=== PATIENT | male | born 1955 | race Hispanic/Latino ===

== ENCOUNTER 2016-07-25 06:53 | Inpatient (IN) | payer BC ==
[2016-07-25 07:00] VITALS: BMI 27.1
[2016-07-25] MEDS ORDERED: Metoprolol 1 mg/ml Inj IVP ONE ×2 (07:08→08:10)
[2016-07-25] MEDS ORDERED: Lidocaine 2% Inj (20ml) ONE (07:09)
[2016-07-25] MEDS ORDERED: Eptifibatide 0.75 mg/ml 150 MG/200 ML BOTTLE IV ONE (07:09)
[2016-07-25] MEDS ORDERED: Eptifibatide 20 mg/10mL Inj IVP ONE ×2 (07:09→07:25)
[2016-07-25] MEDS ORDERED: Phenylephrine 10 mg/ml Inj ONE (07:10)
[2016-07-25] MEDS ORDERED: Iohexol 350mgl/ml 50 ML ONE (07:10)
[2016-07-25] MEDS ORDERED: Midazolam 2 MG/2 ML VIAL ONE (07:10)
[2016-07-25] MEDS ORDERED: Iodixanol 320 MG/ML 200 ML BOTTLE IV ONE (07:10)
[2016-07-25] MEDS ORDERED: Nitroglycerin 50mg in D5W 50 MG/250 ML BOTTLE IV ONE (07:11)
[2016-07-25 07:18] LABS: ADD MANUAL DIFF? NO
[2016-07-25 07:24] LABS: BASO # 0.02 K/mm3 (0.0-2.0); BASO % 0.2 % (0.0-3.0); EOS # 0.1 (0.0-0.7); GRAN # 8.28 (1.4-6.5); GRAN % 72.7 % (50.0-68.0); HEMATOCRIT 43.8 % (42.0-52.0); LYMPH # 1.9 (1.2-3.4); LYMPH % 16.3 % (22.0-35.0); MEAN CELL VOLUME 88.7 fL (80.0-105.0); MEAN CORPUSCULAR HEMOGLOBIN 32.2 pg (25.0-35.0); MEAN CORPUSCULAR HGB CONC 36.3 g/dl (31.0-37.0); MEAN PLATELET VOLUME 10.4 fl (7.0-11.0); MONO # 1.1 (0.1-0.6); MONO % 9.8 % (1.0-6.0); PLATELET COUNT 241 10^3/uL (120.0-450.0); RED CELL DISTRIBUTION WIDTH 12.4 % (11.5-14.5); WHITE BLOOD COUNT 11.4 10^3/ul (4.5-11.0)
[2016-07-25 07:33] LABS: PARTIAL THROMBOPLASTIN TIME 27.3 Seconds (23.7-30.8)
[2016-07-25 07:36] LABS: ALB/GLOB RATIO 1.3 (1.1-1.8); ALKALINE PHOSPHATASE 128 U/L (38-133); ALT/SGPT 44 U/L (7-56); AST/SGOT 51 U/L (15-59); BILIRUBIN,TOTAL 1.9 mg/dL (0.2-1.3); BLOOD UREA NITROGEN 23 mg/dL (7-21); CALCIUM 8.9 mg/dL (8.4-10.5); CARBON DIOXIDE 23 mmol/L (21-33); CHLORIDE 95 mmol/L (95-110); CHOLESTEROL 229 mg/dL (130-200); GFR AFRICAN-AMERICAN > 60; POTASSIUM 4.2 mmol/L (3.6-5.0); SODIUM 131 mmol/L (132-148); TOTAL PROTEIN 7.5 g/dL (5.8-8.3)
--- NOTE | 2016-07-25 07:37 | ED PDOC ---
Arrival/HPI - General Chief Complaint: Chest Pain Time Seen by Provider: 07/25/16 07:00 Historian: Patient - History of Present Illness Narrative History of Present Illness (Text): 07/25/16 07:21 61 year old male presents to the emergency department with intermittent chest pain on and off for the past 4 days, becoming constant early this morning, accompanied with generalized weakness. No back pain. No relieving or exacerbating factors. Patient states he is borderline diabetic and reports history of smoking. Time/Duration: < week Symptom Onset: Gradual Modifying Factors (Text): None Associated Symptoms (Text): Generalized weakness Past Medical History - Provider Review Nursing Documentation Reviewed: Yes - Cardiac Hx Cardiac Disorders: No - Pulmonary Hx Respiratory Disorders: No - Neurological Hx Neurological Disorder: No - HEENT Hx HEENT Disorder: No - Renal Hx Renal Disorder: No - Endocrine/Metabolic Other/Comment: Borderline Diabetic - Hematological/Oncological Hx Blood Disorders: No - Integumentary Hx Dermatological Disorder: No - Musculoskeletal/Rheumatological Hx Musculoskeletal Disorders: No - Gastrointestinal Hx Gastrointestinal Disorders: No - Genitourinary/Gynecological Hx Genitourinary Disorders: No - Psychiatric Hx Psychophysiologic Disorder: No Hx Substance Use: No - Anesthesia Hx Anesthesia: No Family/Social History - Physician Review Nursing Documentation Reviewed: Yes Family/Social History: Unknown Family HX Smoking Status: Heavy Smoker > 10 Cigarettes Daily Hx Alcohol Use: No Hx Substance Use: No Allergies/Home Meds Allergies/Adverse Reactions: Allergies No Known Allergies Allergy (Verified 07/25/16 07:08) Home Medications: Home Meds Medication Instructions Recorded Confirmed No Known Home Med 07/25/16 07/25/16 Review of Systems - Physician Review All systems were reviewed & negative as marked: Yes Physical Exam - Physical Exam Narrative Physical Exam (Text): - Review of Systems Constitutional: Generalized weakness absent: Weight Change, Fevers Eyes: Normal ENT: Normal Respiratory: Normal absent: SOB, Cough, Sputum Cardiovascular: Chest pain absent: Palpitations, Syncope Gastrointestinal: Normal absent: Abdominal pain, Diarrhea, Nausea, Vomiting Genitourinary: Normal. absent: Dysuria, Frequency, Hematuria Musculoskeletal: Normal. absent: Arthralgias, Back Pain, Neck Pain Skin: Normal Neurological: Normal absent: Focal Weakness Endocrine: Normal Hemo/Lymphatic: Normal Psychiatric: Normal - Physical exam Patient appears age appropriate, speaking full sentences without difficulty - Systems Exam Head: Present: Atraumatic, Normocephalic Pupils: Present: PERRL Extraocular Muscles: Present: EOMI Conjunctiva: Present: Normal Mouth: Present: Moist Mucous Membranes Neck: Present: Normal Range of Motion. No: MIDLINE TENDERNESS, Paraspinal Tenderness Respiratory/Chest: Present: Clear to Auscultation, Good Air Exchange. No: Respiratory Distress, Accessory Muscle Use, Tachypneic Cardiovascular: Present: Tachycardic, Irregular Rhythm, Peripheral Pulses Present. No: Murmurs Abdomen: Present: Normal Bowel Sounds, No: Tenderness, Peritoneal Signs, Rebound, Guarding, Distention Back: Present: Normal Inspection. No: Midline Tenderness, Paraspinal Tenderness Upper Extremity: Present: Normal Inspection. No: Cyanosis, Edema Lower Extremity: Present: Normal Inspection. No: Edema Neurological: Present: GCS=15, Speech Normal, cranial nerves II through XII fully intact with no cerebellar abnormality, neuro-sensory fully intact. No focal neurological deficits. Skin: Present: Warm, Dry, Normal Color. No: Rashes Lymphatic: Present: OX3, NI, NC Psychiatric: Present: Alert, Oriented x 3, Normal Insight, Normal Concentration Vital Signs Reviewed: Yes Vital Signs Temp Pulse Resp BP Pulse Ox 07/25/16 07:00 98.2 F 84 16 124/99 H 94 L 07/25/16 06:58 98.2 F 84 16 124/99 H 94 L Temperature: Afebrile Blood Pressure: Normal Pulse: Regular Respiratory Rate: Normal Appearance: Positive for: Well-Appearing, Non-Toxic Mental Status: Positive for: Alert and Oriented X 3 Medical Decision Making ED Course and Treatment: Impression: 61 year old male presents to the emergency department with intermittent chest pain on and off for the past 4 days, becoming constant early this morning, accompanied with generalized weakness. On physical exam, patient is tachycardic and has irregular rhythm. Differential Diagnosis include but are not limited to: STEMI, atrial fibrillation Plan: -- Chest X-ray -- Labs -- Cardiology consult Progress Notes: Per patient's family's request, Dr. Craft was called and not the interventionalist business solutions director. Patient's EKG shows atrial fibrillation at 160 BPM, ST segment elevations in inferior and lateral leads; Interpreted by me. Chest x-ray read by me shows no pneumothorax, no pneumonia, no cardiomegaly, no infiltrates. Code Heart activated. Dr. Craft saw patient in ER and took to laborer [employer]. Patient to be admitted to his service. Verbal order given for Aspirin, Plavix, Heparin, and Integrilin. pt aware of plan and diagnosis - Lab Interpretations Lab Results: 07/25/16 07:00 07/25/16 07:00 Lab Results 07/25/16 07:00: Sodium 131 L, Potassium 4.2, Chloride 95, Carbon Dioxide 23, Anion Gap 17, BUN 23 H, Creatinine 1.2, Est GFR ( Amer) > 60, Est GFR ( Non-Af Amer) > 60, Random Glucose 363 H*, Calcium 8.9, Total Bilirubin 1.9 H, AST 51, ALT 44, Alkaline Phosphatase 128, Lactate Dehydrogenase 528, Total Creatine Kinase 170, Troponin I 16.90 H*, Total Protein 7.5, Albumin 4.2, Globulin 3.3, Albumin/Globulin Ratio 1.3, Triglycerides 250 H, Cholesterol 229 H , LDL Cholesterol Direct 149 H, HDL Cholesterol 31 07/25/16 07:00: PT 10.8, INR 1.00, APTT 27.3 07/25/16 07:00: WBC 11.4 H, RBC 4.94, Hgb 15.9, Hct 43.8, MCV 88.7, MCH 32.2, MCHC 36.3, RDW 12.4, Plt Count 241, MPV 10.4, Gran % 72.7 H, Lymph % (Auto) 16.3 L, Bulloch % (Auto) 9.8 H, Eos % (Auto) 1.0 L, Baso % (Auto) 0.2, Gran # 8.28 H, Lymph # 1.9, Bulloch # 1.1 H, Eos # 0.1, Baso # 0.02 - RAD Interpretation Radiology Orders: 07/25/16 07:09 X-RAY [CHEST PORTABLE] [RAD] Stat - Medication Orders Current Medication Orders: Discontinued Medications Aspirin (Aspirin) Confirm Administered Dose 650 mg .ROUTE .STK-MED ONE Stop: 07/25/16 07:09 Clopidogrel Bisulfate (Plavix) Confirm Administered Dose 600 mg .ROUTE .STK-MED ONE Stop: 07/25/16 07:09 Diltiazem HCl (Cardizem) Confirm Administered Dose 25 mg .ROUTE .STK-MED ONE Stop: 07/25/16 07:05 Eptifibatide (Integrilin Bolus) Confirm Administered Dose 40 mg IVP .STK-MED ONE Stop: 07/25/16 07:10 Eptifibatide (Integrilin Bolus) Confirm Administered Dose 20 mg IVP .STK-MED ONE Stop: 07/25/16 07:26 Fentanyl (Fentanyl) Confirm Administered Dose 100 mcg .ROUTE .STK-MED ONE Stop: 07/25/16 07:11 Heparin Sodium (Porcine) (Heparin) Confirm Administered Dose 5,000 units .ROUTE .STK-MED ONE Stop: 07/25/16 07:09 Heparin Sodium (Porcine) (Heparin) Confirm Administered Dose 10,000 units .ROUTE .STK-MED ONE Stop: 07/25/16 07:10 Eptifibatide (Integrilin) Confirm Administered Dose 150 mg in 200 mls @ ud IV .STK-MED ONE Stop: 07/25/16 07:10 Nitroglycerin/Dextrose (Nitroglycerin 50 Mg/250 Ml D5w) Confirm Administered Dose 50 mg in 250 mls @ ud IV .STK-MED ONE Stop: 07/25/16 07:12 Heparin Sodium (Porcine) (Heparin 1000 Units/500 Ml Ns) Confirm Administered Dose 1,500 mls @ ud IV .STK-MED ONE Stop: 07/25/16 07:12 Heparin Sodium (Porcine) (Heparin 1000 Units/500 Ml Ns) Confirm Administered Dose 1,500 mls @ ud IV .STK-MED ONE Stop: 07/25/16 07:12 Iodixanol (Visipaque 320 Mg/Ml 200 Ml) Confirm Administered Dose 200 ml IV .STK- MED ONE Stop: 07/25/16 07:11 Iodixanol (Visipaque 320 Mg/Ml 100 Ml) Confirm Administered Dose 100 ml IV .STK- MED ONE Stop: 07/25/16 07:49 Iohexol (Omnipaque 350mg/Ml 50 Ml) Confirm Administered Dose 50 ml .ROUTE .STK- MED ONE Stop: 07/25/16 07:11 Lidocaine HCl (Lidocaine 2% 20ml Vial) Confirm Administered Dose 20 ml .ROUTE .STK-MED ONE Stop: 07/25/16 07:10 Metoprolol Tartrate (Lopressor) Confirm Administered Dose 75 mg .ROUTE .STK-MED ONE Stop: 07/25/16 07:09 Metoprolol Tartrate (Lopressor) Confirm Administered Dose 15 mg IVP .STK-MED ONE Stop: 07/25/16 07:09 Midazolam HCl (Versed Inj) Confirm Administered Dose 2 mg .ROUTE .STK-MED ONE Stop: 07/25/16 07:11 Nitroglycerin (Nitrostat Sl Tab) Confirm Administered Dose 0.4 mg SL .STK-MED ONE Stop: 07/25/16 07:08 Phenylephrine HCl (Phenylephrine Inj) Confirm Administered Dose 10 mg .ROUTE .STK-MED ONE Stop: 07/25/16 07:11 Verapamil HCl (Verapamil Inj) Confirm Administered Dose 5 mg IVP .STK-MED ONE Stop: 07/25/16 07:16 Verapamil HCl (Verapamil Inj) Confirm Administered Dose 5 mg IVP .STK-MED ONE Stop: 07/25/16 07:30 - Scribe Statement The provider has reviewed the documentation as recorded by the Opal Palacios Provider Scribe Attestation: All medical record entries made by the Opal were at my direction and personally dictated by me. I have reviewed the chart and agree that the record accurately reflects my personal performance of the history, physical exam, medical decision making, and the department course for this patient. I have also personally directed, reviewed, and agree with the discharge instructions and disposition. Disposition/Present on Arrival - Present on Arrival Any Indicators Present on Arrival: No History of DVT/PE: No History of Uncontrolled Diabetes: No Urinary Catheter: No History of Decub. Ulcer: No History Surgical Site Infection Following: None - Disposition Have Diagnosis and Disposition been Completed?: Yes Diagnosis: STEMI (ST elevation myocardial infarction) Disposition: HOSPITALIZED Disposition Time: 07:21 Patient Plan: Admission Condition: CRITICAL
--- NOTE | 2016-07-25 07:47 | ED PDOC ---
Arrival/HPI - General Chief Complaint: Chest Pain Time Seen by Provider: 07/25/16 07:00 Past Medical History - Cardiac Hx Cardiac Disorders: No - Pulmonary Hx Respiratory Disorders: No - Neurological Hx Neurological Disorder: No - HEENT Hx HEENT Disorder: No - Renal Hx Renal Disorder: No - Endocrine/Metabolic Other/Comment: Borderline Diabetic - Hematological/Oncological Hx Blood Disorders: No - Integumentary Hx Dermatological Disorder: No - Musculoskeletal/Rheumatological Hx Musculoskeletal Disorders: No - Gastrointestinal Hx Gastrointestinal Disorders: No - Genitourinary/Gynecological Hx Genitourinary Disorders: No - Psychiatric Hx Psychophysiologic Disorder: No Hx Substance Use: No - Anesthesia Hx Anesthesia: No Family/Social History Smoking Status: Heavy Smoker > 10 Cigarettes Daily Hx Alcohol Use: No Hx Substance Use: No Allergies/Home Meds Allergies/Adverse Reactions: Allergies No Known Allergies Allergy (Verified 07/25/16 07:08) Home Medications: Home Meds Medication Instructions Recorded Confirmed No Known Home Med 07/25/16 07/25/16 Physical Exam Vital Signs Temp Pulse Resp BP Pulse Ox 07/25/16 07:00 98.2 F 84 16 124/99 H 94 L 07/25/16 06:58 98.2 F 84 16 124/99 H 94 L Medical Decision Making - RAD Interpretation Radiology Orders: 07/25/16 07:09 X-RAY [CHEST PORTABLE] [RAD] Stat - Medication Orders Current Medication Orders: Discontinued Medications Aspirin (Aspirin) Confirm Administered Dose 650 mg .ROUTE .STK-MED ONE Stop: 07/25/16 07:09 Clopidogrel Bisulfate (Plavix) Confirm Administered Dose 600 mg .ROUTE .STK-MED ONE Stop: 07/25/16 07:09 Diltiazem HCl (Cardizem) Confirm Administered Dose 25 mg .ROUTE .STK-MED ONE Stop: 07/25/16 07:05 Eptifibatide (Integrilin Bolus) Confirm Administered Dose 40 mg IVP .STK-MED ONE Stop: 07/25/16 07:10 Fentanyl (Fentanyl) Confirm Administered Dose 100 mcg .ROUTE .STK-MED ONE Stop: 07/25/16 07:11 Heparin Sodium (Porcine) (Heparin) Confirm Administered Dose 5,000 units .ROUTE .STK-MED ONE Stop: 07/25/16 07:09 Heparin Sodium (Porcine) (Heparin) Confirm Administered Dose 10,000 units .ROUTE .STK-MED ONE Stop: 07/25/16 07:10 Eptifibatide (Integrilin) Confirm Administered Dose 150 mg in 200 mls @ ud IV .STK-MED ONE Stop: 07/25/16 07:10 Nitroglycerin/Dextrose (Nitroglycerin 50 Mg/250 Ml D5w) Confirm Administered Dose 50 mg in 250 mls @ ud IV .STK-MED ONE Stop: 07/25/16 07:12 Heparin Sodium (Porcine) (Heparin 1000 Units/500 Ml Ns) Confirm Administered Dose 1,500 mls @ ud IV .STK-MED ONE Stop: 07/25/16 07:12 Heparin Sodium (Porcine) (Heparin 1000 Units/500 Ml Ns) Confirm Administered Dose 1,500 mls @ ud IV .STK-MED ONE Stop: 07/25/16 07:12 Iodixanol (Visipaque 320 Mg/Ml 200 Ml) Confirm Administered Dose 200 ml IV .STK- MED ONE Stop: 07/25/16 07:11 Iohexol (Omnipaque 350mg/Ml 50 Ml) Confirm Administered Dose 50 ml .ROUTE .STK- MED ONE Stop: 07/25/16 07:11 Lidocaine HCl (Lidocaine 2% 20ml Vial) Confirm Administered Dose 20 ml .ROUTE .STK-MED ONE Stop: 07/25/16 07:10 Metoprolol Tartrate (Lopressor) Confirm Administered Dose 75 mg .ROUTE .STK-MED ONE Stop: 07/25/16 07:09 Metoprolol Tartrate (Lopressor) Confirm Administered Dose 15 mg IVP .STK-MED ONE Stop: 07/25/16 07:09 Midazolam HCl (Versed Inj) Confirm Administered Dose 2 mg .ROUTE .STK-MED ONE Stop: 07/25/16 07:11 Nitroglycerin (Nitrostat Sl Tab) Confirm Administered Dose 0.4 mg SL .STK-MED ONE Stop: 07/25/16 07:08 Phenylephrine HCl (Phenylephrine Inj) Confirm Administered Dose 10 mg .ROUTE .STK-MED ONE Stop: 07/25/16 07:11 Verapamil HCl (Verapamil Inj) Confirm Administered Dose 5 mg IVP .STK-MED ONE Stop: 07/25/16 07:16 Disposition/Present on Arrival - Present on Arrival History of DVT/PE: No History of Uncontrolled Diabetes: No Urinary Catheter: No History of Decub. Ulcer: No History Surgical Site Infection Following: None - Disposition
[2016-07-25 07:48] LABS: GLUCOSE,RANDOM 363 mg/dL (70-110)
[2016-07-25] MEDS ORDERED: Iodixanol 320 MG/ML 100 ML BOTTLE IV ONE (07:48)
[2016-07-25] MEDS ORDERED: Sodium Chloride 0.9% 1,000 ML IV SCH (09:15)
[2016-07-25] MEDS: Eptifibatide 0.75 mg/ml 75 MG/100 ML BOTTLE IV SCH ×3 (09:30→21:20)
--- NOTE | 2016-07-25 10:18 | RAD ---
HISTORY: [place] COMPARISON: No prior. FINDINGS: LUNGS: No active pulmonary disease. PLEURA: No significant pleural effusion identified, no pneumothorax apparent. CARDIOVASCULAR: Normal. OSSEOUS STRUCTURES: No significant abnormalities. VISUALIZED UPPER ABDOMEN: Normal. OTHER FINDINGS: None. IMPRESSION: No active disease.
[2016-07-25] MEDS ORDERED: Bacitracin 500 Units/gm Oint Foilpak UD ONE (13:15)
[2016-07-25 13:26] LABS: ADD MANUAL DIFF? NO
[2016-07-25 13:29] LABS: BASO # 0.01 K/mm3 (0.0-2.0); BASO % 0.1 % (0.0-3.0); EOS % 0.4 % (1.5-5.0); GRAN # 5.65 (1.4-6.5); GRAN % 68.8 % (50.0-68.0); HEMATOCRIT 37.8 % (42.0-52.0); LYMPH # 1.9 (1.2-3.4); LYMPH % 23.4 % (22.0-35.0); MEAN CELL VOLUME 88.9 fL (80.0-105.0); MEAN CORPUSCULAR HEMOGLOBIN 32.2 pg (25.0-35.0); MEAN CORPUSCULAR HGB CONC 36.2 g/dl (31.0-37.0); MEAN PLATELET VOLUME 10.3 fl (7.0-11.0); MONO # 0.6 (0.1-0.6); MONO % 7.3 % (1.0-6.0); PLATELET COUNT 194 10^3/uL (120.0-450.0); RED CELL DISTRIBUTION WIDTH 12.4 % (11.5-14.5); WHITE BLOOD COUNT 8.2 10^3/ul (4.5-11.0)
[2016-07-25 13:39] LABS: BLOOD UREA NITROGEN 22 mg/dL (7-21); CALCIUM 8.5 mg/dL (8.4-10.5); CARBON DIOXIDE 23 mmol/L (21-33); CHLORIDE 100 mmol/L (98-107); GFR AFRICAN-AMERICAN > 60; GLUCOSE,RANDOM 245 mg/dL (70-110); POTASSIUM 4.4 mmol/L (3.6-5.0); SODIUM 131 mmol/L (132-148)
--- NOTE | 2016-07-25 15:07 | PN ---
DATE: 07/25/2016 REASON FOR ADMISSION: Acute inferior wall myocardial infarction, status post emergent angioplasty wi th 3 drug-eluting stents in the circumflex, totally occluded circumflex. BRIEF CLINICAL HISTORY: A 61-year-old active tobacco abuse male with past medical history of diabete s, diet controlled, admitted with acute inferior lateral wall myocardial infarction. The patient und erwent emergent angioplasty of circumflex. A drug-eluting stent was deployed. The patient had 2 sep arate ostium of the LAD and circumflex ____ left main does not exist. LAD has some luminal irregulari ty at 30%-40%, multiple stenoses, but no flow obstructive stenosis noted. RCA totally occluded, look s like apparently total chronic occlusion for a long time, circumflex freshly occluded thought to be the culprit for the acute GA event, for coronary event. Successful PTCA was done. LV gram shows eject ion fraction 35% with inferobasal hypokinesis noted, possibly consistent with chronic inferior wall M I. PHYSICAL EXAMINATION: VITAL SIGNS: Temperature afebrile, heart rate 77, blood pressure 108/82. HEENT: PERRLA. Extraocular muscles intact. NECK: Supple. No carotid bruits. No thyromegaly. CHEST: Clear to auscultation. HEART: S1, S2 regular. ABDOMEN: Soft. EXTREMITIES: Clubbing and cyanosis negative. LABORATORY DATA: WBC 11.4, hemoglobin 15.9, hematocrit 43.8, platelet count 241. Chemistry shows so dium 131, potassium 4.2, chloride 95, carbon dioxide 23, anion gap of 17, BUN 23, creatinine 1.2. Tr oponin 16.9. Triglycerides 250, cholesterol 229, LDL 149, HDL 31. IMPRESSION: Acute inferolateral myocardial infarction, status post occlusion of the circumflex, stat us post percutaneous transluminal coronary angioplasty of circumflex with 3 drug-eluting stents done, right coronary artery totally chronically occluded, decreased left ventricular function, silent infe rior wall myocardial infarction of undetermined age. RECOMMENDATION: Continue aspirin, continue Plavix. Will start atorvastatin 80 mg daily, start ramip ril 1.25 mg daily from tomorrow because the patient ____ dye load so will prevent kidney injury, cont rast-induced nephropathy. We will continue to hydrate. We will continue Integrilin for 18 hours and start beta harlan. We will get lipid profile, TSH, hemoglobin A1c. We will get echo. Further rec ommendation ____ hospital course. We will follow with you. Thank you, Dr. Iniguez, for providing the opportunity in taking care of the patient. Blaine Craft MD cc: [id number] TT: 07/25/2016 15:06:22 Confirmation # [id number] Dictation # [id number]
--- NOTE | 2016-07-25 15:12 | CP.PCM.CON ---
<Bria Engel - Last Filed: 07/25/16 16:33> History of Present Illness - History of Present Illness History of Present Illness: PGY-[address] Dhillon ICU consult: NSTEMI s/p PCI and stents 61 M, "borderline diabetics" and current active smoker of 40 pack-years, presented to ED with intermittent chest pain started 4 days ago. It comes and go , dull, 10/10 with diaphoresis and radiation to back with pending sense of doom. The pain slowly subsided for the subsequent days as pt stays in bed and remains in bed. This AM, pt woke up, went to shower, NO CHEST PAIN, but with sudden generalized weakness and severe lighheadedness. Pt went to ED. Upon ED arrival, pt is tachcardiac and has A-fib RVR @ 160. EKG showed inferior/ lateral NSTEMI, rapid a-fib. Code heart was activated. Pt received ASA 325, plavix 600, heparin 5000, integrillin 15, with NS. Dr. Craft took pt to cath. L cir was totally occluded. Pt received verapamil 7.5 and lopressor 5. heart rhythm was converted to sinus tachy post-PCI balloon, and further converted to normal rhthym @ 80 after stenting. 3 KAILA was placed at distal, mid-, and proximal L-cir. pt received TR band on L radial entry site. PMH borderline DM PSH None FH Mom - [place], cardiomyopathy, TIA, CHF Siblings - DM, HLD SH 1ppd x 40 years, 3 beers 3 times a week. denies drugs All NKDA Med None stopped all meds 6 month [address] [employer] [address]. Craft Past Patient History - Past Social History Smoking Status: Heavy Smoker > 10 Cigarettes Daily - CARDIAC Hx Cardiac Disorders: No - PULMONARY Hx Respiratory Disorders: No - NEUROLOGICAL Hx Neurological Disorder: No - HEENT Hx HEENT Problems: No - RENAL Hx Chronic Kidney Disease: No - ENDOCRINE/METABOLIC Other/Comment: Borderline Diabetic - HEMATOLOGICAL/ONCOLOGICAL Hx Blood Disorders: No - INTEGUMENTARY Hx Dermatological Problems: No - MUSCULOSKELETAL/RHEUMATOLOGICAL Hx Falls: No - GASTROINTESTINAL Hx Gastrointestinal Disorders: No - GENITOURINARY/GYNECOLOGICAL Hx Genitourinary Disorders: No - PSYCHIATRIC Hx Substance Use: No - SURGICAL HISTORY Hx Surgeries: No - ANESTHESIA Hx Anesthesia: No Meds Allergies/Adverse Reactions: Allergies Allergy/AdvReac Type Severity Reaction Status Date / Time No Known Allergies Allergy Verified 07/25/16 07:08 - Medications Medications: Current Medications Aspirin (Ecotrin) 81 mg PO DAILY [facility] Atorvastatin Calcium (Lipitor) 80 mg PO DIN [facility] Clopidogrel Bisulfate (Plavix) 75 mg PO DAILY [facility] Docusate Sodium (Colace) 100 mg PO BID [facility] Last Admin: 07/25/16 10:00 Dose: 100 mg Hydralazine HCl (Apresoline) 10 mg PO QID PRN PRN Reason: For SBP>170 and Diastolic>100 Sodium Chloride (Sodium Chloride 0.9%) 1,000 mls @ 50 mls/hr IV .Q20H [facility] Stop: 07/25/16 23:55 Last Admin: 07/25/16 09:59 Dose: 50 mls/hr Eptifibatide (Integrilin) 75 mg in 100 mls @ 12.714 mls/hr IV .Q7H52M HENNY; 2 MCG/KG/MIN PRN Reason: Protocol Stop: 07/26/16 01:00 Last Admin: 07/25/16 14:00 Dose: 12.714 mls/hr Metoprolol Tartrate (Lopressor) 25 mg PO BID [facility] Last Admin: 07/25/16 10:00 Dose: 25 mg Ramipril (Altace) 1.25 mg PO DAILY [facility] Zolpidem Tartrate (Ambien) 5 mg PO HS PRN PRN Reason: Insomnia Physical Exam - Constitutional Appears: No Acute Distress - Head Exam Head Exam: ATRAUMATIC, NORMOCEPHALIC - Eye Exam Eye Exam: EOMI, Normal appearance, PERRL Pupil Exam: NORMAL ACCOMODATION - ENT Exam ENT Exam: Mucous Membranes Moist - Neck Exam Additional comments: No carotid bruits b/l - Respiratory Exam Respiratory Exam: Decreased Breath Sounds (lung bases). absent: Rales, Rhonchi , Wheezes - Cardiovascular Exam Cardiovascular Exam: REGULAR RHYTHM, +S1, +S2. absent: Systolic Murmur - GI/Abdominal Exam GI & Abdominal Exam: Normal Bowel Sounds, Soft. absent: Organomegaly, Tenderness - Extremities Exam Extremities exam: Positive for: normal capillary refill, pedal pulses present. Negative for: calf tenderness, pedal edema - Back Exam Back exam: absent: CVA tenderness (L), CVA tenderness (R) - Neurological Exam Neurological exam: Alert, Oriented x3 - Psychiatric Exam Psychiatric exam: Normal Affect, Normal Mood - Skin Skin Exam: Dry, Normal Color Results - Vital Signs Recent Vital Signs: Last Vital Signs Temp 98.3 F 07/25/16 09:27 Pulse 74 07/25/16 12:00 Resp 13 07/25/16 12:00 BP 127/65 07/25/16 12:00 Pulse Ox 100 07/25/16 12:00 - Labs Result Diagrams: 07/25/16 13:20 07/25/16 13:20 Labs: Laboratory Results - last 24 hr 07/25/16 07/25/16 13:20 13:20 WBC 8.2 D RBC 4.25 Hgb 13.7 L Hct 37.8 L MCV 88.9 MCH 32.2 MCHC 36.2 RDW 12.4 Plt Count 194 MPV 10.3 Gran % 68.8 H Lymph % (Auto) 23.4 Sully % (Auto) 7.3 H Eos % (Auto) 0.4 L Baso % (Auto) 0.1 Gran # 5.65 Lymph # 1.9 Sully # 0.6 Eos # 0.0 Baso # 0.01 Sodium 131 L Potassium 4.4 Chloride 100 Carbon Dioxide 23 Anion Gap 12 BUN 22 H Creatinine 0.9 Est GFR ( Amer) > 60 Est GFR (Non-Af Amer) > 60 Random Glucose 245 H Calcium 8.5 Lactate Dehydrogenase 685 Total Creatine Kinase 627 H CK-MB (CK-2) 42.1 H CK-MB (CK-2) % 6.7 H Troponin I 28.30 H* D Assessment & Plan - Assessment and Plan (Free Text) Plan: 61 M, "borderline diabetics" and current active smoker of 40 pack-years, had inferior/lateral NSTEMI, rapid a-fib, s/p Code heart. L cir was 100 blocked, 3 KAILA were placed. Neuro AAOx3 Ambien PRN nicoderm patch Need tobacco cessation counseling Cardio AM EKG ASA 81, plavix 75, metoprolol 25 bid, lipitor 80; restart home ramipril 1.25 tomorrow integrillin x 18 hours hydralazine 10 PO QID prn Pulm 2L nC PRN, maintain SaO2 > 95% GI Heart health diet Docusate 100 bid Renal NS@50 Endo Pending a1c, tsh, lipid S/R/D/w Dr. Dhillon - Date & Time Date: 07/25/16 Time: 15:12 <Lyla Dhillon MD - Last Filed: 07/25/16 18:38> Meds - Medications Medications: Current Medications Aspirin (Ecotrin) 81 mg PO DAILY [facility] Atorvastatin Calcium (Lipitor) 80 mg PO DIN [facility] Last Admin: 07/25/16 18:23 Dose: 80 mg Camphor/Menthol (Bengay) 0 gm TOP TID [facility] Last Admin: 07/25/16 18:24 Dose: 1 dose Clopidogrel Bisulfate (Plavix) 75 mg PO DAILY [facility] Docusate Sodium (Colace) 100 mg PO BID [facility] Last Admin: 07/25/16 18:35 Dose: Not Given Hydralazine HCl (Apresoline) 10 mg PO QID PRN PRN Reason: For SBP>170 and Diastolic>100 Sodium Chloride (Sodium Chloride 0.9%) 1,000 mls @ 50 mls/hr IV .Q20H [facility] Stop: 07/25/16 23:55 Last Admin: 07/25/16 09:59 Dose: 50 mls/hr Eptifibatide (Integrilin) 75 mg in 100 mls @ 12.714 mls/hr IV .Q7H52M [facility]; 2 MCG/KG/MIN PRN Reason: Protocol Stop: 07/26/16 01:00 Last Admin: 07/25/16 14:00 Dose: 12.714 mls/hr Ketorolac Tromethamine (Toradol) 15 mg IVP Q6H PRN PRN Reason: MUSCLE SPASM Metoprolol Tartrate (Lopressor) 25 mg PO BID [facility] Last Admin: 07/25/16 18:23 Dose: 25 mg Nicotine (Nicoderm Cq) 1 patch TD DAILY [facility] Last Admin: 07/25/16 18:34 Dose: Not Given Ramipril (Altace) 1.25 mg PO DAILY [facility] Zolpidem Tartrate (Ambien) 5 mg PO HS PRN PRN Reason: Insomnia Results - Vital Signs Recent Vital Signs: Last Vital Signs Temp 100.4 F H 07/25/16 17:12 Pulse 84 07/25/16 18:30 Resp 14 07/25/16 18:30 BP 136/85 07/25/16 18:30 Pulse Ox 100 07/25/16 18:30 - Labs Result Diagrams: 07/25/16 13:20 07/25/16 13:20 Labs: Laboratory Results - last 24 hr 07/25/16 07/25/16 07/25/16 13:20 13:20 15:58 WBC 8.2 D RBC 4.25 Hgb 13.7 L Hct 37.8 L MCV 88.9 MCH 32.2 MCHC 36.2 RDW 12.4 Plt Count 194 MPV 10.3 Gran % 68.8 H Lymph % (Auto) 23.4 Sully % (Auto) 7.3 H Eos % (Auto) 0.4 L Baso % (Auto) 0.1 Gran # 5.65 Lymph # 1.9 Sully # 0.6 Eos # 0.0 Baso # 0.01 Sodium 131 L Potassium 4.4 Chloride 100 Carbon Dioxide 23 Anion Gap 12 BUN 22 H Creatinine 0.9 Est GFR ( Amer) > 60 Est GFR (Non-Af Amer) > 60 POC Glucose (mg/dL) 245 H Random Glucose 245 H Calcium 8.5 Lactate Dehydrogenase 685 Total Creatine Kinase 627 H CK-MB (CK-2) 42.1 H CK-MB (CK-2) % 6.7 H Troponin I 28.30 H* D Attending/Attestation - Attestation I have personally seen and examined this patient.: Yes I have fully participated in the care of the patient.: Yes I have reviewed all pertinent clinical information: Yes Notes (Text): 07/25/16 18:36 61 y/o M w/ STEMI S/P 3 STENTS placed, Hemodynamics stable. CP free On integrilin x 18 hrs. Started on B- Blockers, asprin,Statin, plavix and ACEi to start soon. ECHO pending. L TR band removal per protocol. Monitor for bleeding. Diet resumed PT/OT cc time 34 min
--- NOTE | 2016-07-25 15:45 | CARD ---
APPROVED REPORT EKG Measurement Heart [id number] <Conclusion> Atrial fibrillation with rapid ventricular response Inferolateral infarct, acute ACUTE [place]
--- NOTE | 2016-07-25 16:40 | CARD ---
APPROVED REPORT EKG Measurement Heart [id number] <Conclusion> Normal sinus rhythm Left axis deviation/LAHB Inferior-posterior infarct, acute, evolving ACUTE IN STTW changes c/w ischemia
--- NOTE | 2016-07-25 17:30 | HP ---
REASON FOR ADMISSION: Acute inferior wall IL, code STEMI. BRIEF CLINICAL HISTORY: This is a 61-year-old male with past medical history significant for diet co ntrolled diabetes, active tobacco abuse, who was having chest pain on past Saturday night and Saturday, between Saturday and Saturday. Then, it got better. This morning then it completely got reliev ed chest pain ____ 5 hours and felt indigestion feeling and then completely relieved on Saturday. This morning, patient had, in the morning, woke up with some chest discomfort, went to the bathroom, was about to take shower and he almost passed out, so called the sister and then brought here to the [facility] Room. Found to be ST elevation. EKG showed AFib with rapid ventricular rate with ST elevation in inferior lead, Q-wave in II, III, aVF, as well as lateral ST elevation in V5, V6 and reciprocal S T depression in lead V2, V3, so code STEMI was activated and ____ the patient planned to take emergen t cleaner laboratory equipment. After giving ____ of Plavix in the ER, 5000 heparin bolus, Integrilin 1 bolus was given, second bolus 10 minutes apart and drip was started. PAST HISTORY: Significant for diabetes, not on any medication, diet controlled. SOCIAL HISTORY: Active tobacco abuse, 1 pack a day off and on, recently smoking. FAMILY HISTORY: Significant for coronary artery disease. CURRENT MEDICATIONS: None. ALLERGIES: No known drug allergies. PHYSICAL EXAMINATION: As follows: VITAL SIGNS: Temperature afebrile, heart rate 140, blood pressure 148/80. HEENT: PERRLA, intact. NECK: Supple. No carotid bruits. No thyromegaly. CHEST: Clear to auscultation. HEART: S1, S2 regular. ABDOMEN: Soft. EXTREMITIES: Clubbing, cyanosis negative. BLOOD WORKUP: Pending. EKG shows atrial fibrillation, rate of 137 with Q-wave in II, III, aVF; 2-[address] elevation in lead I I, III, aVF as well as V5, V6. IMPRESSION: Acute inferolateral wall myocardial infarction, code ST segment elevation myocardial inf arction. Impression, will give as mentioned 5000 heparin bolus, Integrilin 2 boluses and ____ be sta rted ____ Plavix was given, aspirin was given. The patient was taken to the cleaner laboratory equipment. Risks, benefi ts, alternatives discussed with the patient. The patient's sister, Pau, works with Dr. Iniguez's off ice and our office. Explained risks, benefits. Agreeable to proceed for emergent cardiac cath, possi ble angioplasty. Thank you, Dr. Iniguez, for providing the opportunity in taking care of the patient. Blaine Craft MD cc:Blaine Iniguez MD [id number] TT: 07/25/2016 17:30:14 sn
[2016-07-25] MEDS: Menthol/Methyl Salicylate Ointment(1 oz) TOP SCH (18:24)
[2016-07-26 06:29] LABS: ADD MANUAL DIFF? NO
[2016-07-26 06:40] LABS: BASO # 0.01 K/mm3 (0.0-2.0); BASO % 0.1 % (0.0-3.0); EOS # 0.1 (0.0-0.7); EOS % 0.7 % (1.5-5.0); GRAN # 4.63 (1.4-6.5); GRAN % 68.4 % (50.0-68.0); HEMATOCRIT 33.5 % (42.0-52.0); LYMPH # 1.5 (1.2-3.4); LYMPH % 21.6 % (22.0-35.0); MEAN CELL VOLUME 88.4 fL (80.0-105.0); MEAN CORPUSCULAR HEMOGLOBIN 32.2 pg (25.0-35.0); MEAN CORPUSCULAR HGB CONC 36.4 g/dl (31.0-37.0); MEAN PLATELET VOLUME 9.8 fl (7.0-11.0); MONO # 0.6 (0.1-0.6); MONO % 9.2 % (1.0-6.0); PLATELET COUNT 218 10^3/uL (120.0-450.0); RED CELL DISTRIBUTION WIDTH 12.2 % (11.5-14.5); WHITE BLOOD COUNT 6.8 10^3/ul (4.5-11.0)
[2016-07-26 06:52] LABS: ALB/GLOB RATIO 1.1 (1.1-1.8); ALKALINE PHOSPHATASE 90 U/L (38-133); ALT/SGPT 45 U/L (7-56); AST/SGOT 85 U/L (15-59); BILIRUBIN,TOTAL 1.4 mg/dL (0.2-1.3); BLOOD UREA NITROGEN 23 mg/dL (7-21); CALCIUM 8.5 mg/dL (8.4-10.5); CARBON DIOXIDE 27 mmol/L (21-33); CHLORIDE 101 mmol/L (98-107); CHOLESTEROL 173 mg/dL (130-200); GFR AFRICAN-AMERICAN > 60; GLUCOSE,RANDOM 244 mg/dL (70-110); MAGNESIUM 2.2 mg/dL (1.7-2.2); PHOSPHOROUS 2.7 mg/dL (2.5-4.5); POTASSIUM 4.2 mmol/L (3.6-5.0); SODIUM 133 mmol/L (132-148)
--- NOTE | 2016-07-26 06:56 | CP.CCUPN ---
<Bria Engel - Last Filed: 07/26/16 15:04> CCU Subjective - Physician Review Subjective (Free Text): 07/26/16 06:53 No acute event overnight. Integrillin drip d/c 1am. (+) passing gas. No BM yet. No CP, SOB, Dizziness, diaphoresis, N/V CCU Objective - Vital Signs / Intake & Output Vital Signs (Last 4 hours): Vital Signs Temp Pulse Resp BP Pulse Ox 07/26/16 05:24 99 F 07/26/16 04:40 80 95 07/26/16 04:30 80 97 07/26/16 04:20 82 23 96 07/26/16 04:10 80 96 07/26/16 04:00 85 18 123/72 95 07/26/16 03:50 82 22 96 07/26/16 03:40 88 22 98 07/26/16 03:30 90 28 H 95 07/26/16 03:20 78 95 07/26/16 03:10 86 17 96 07/26/16 03:00 83 20 140/66 97 Intake and Output (Last 8hrs): Intake & Output 07/25/16 07/25/16 07/26/16 14:59 22:59 06:59 Intake Total 100 410 700 Output Total 500 800 Balance 100 -90 -100 Weight 195 lb 190 lb Intake: IV 500 Left Forearm 500 Oral 360 200 Other 100 50 Output: Urine 500 800 Urine, Voided 500 800 Stool 0 Other: Voiding Method Urinal Urinal # Voids Urine, Voided 2 # Bowel Movements 0 - Physical Exam Head: Positive for: Atraumatic, Normocephalic Pupils: Positive for: PERRL Extroacular Muscles: Positive for: EOMI Conjunctiva: Negative for: Injected, Icteric Neck: Negative for: JVD Respiratory/Chest: Positive for: Clear to Auscultation. Negative for: Wheezes, Rales, Rhonchi Cardiovascular: Positive for: Regular Rate and Rhythm, Normal S1, S2 Abdomen: Positive for: Normal Bowel Sounds. Negative for: Tenderness, Distention Lower Extremity: Positive for: NORMAL PULSES. Negative for: Edema, CALF TENDERNESS Neurological: Positive for: Speech Normal Skin: Positive for: Warm, Dry Psychiatric: Positive for: Alert, Oriented x 3, Normal Insight, Normal Concentration - Medications Active Medications: Active Medications Generic Name Dose Route Start Last Admin Trade Name Freq PRN Reason Stop Dose Admin Aspirin 81 mg 07/26/16 10:00 Ecotrin PO DAILY [facility] Atorvastatin Calcium 80 mg 07/25/16 17:00 07/25/16 18:23 Lipitor PO 80 mg DIN HENNY Administration Camphor/Menthol 0 gm 07/25/16 18:00 07/25/16 18:24 Bengay TOP 1 dose TID HENNY Administration Clopidogrel Bisulfate 75 mg 07/26/16 10:00 Plavix PO DAILY [facility] Docusate Sodium 100 mg 07/25/16 10:00 07/25/16 18:35 Colace PO Not Given BID [facility] Hydralazine HCl 10 mg 07/25/16 09:35 Apresoline PO QID PRN For SBP>170 and Diastolic>100 Ketorolac Tromethamine 15 mg 07/25/16 16:51 Toradol IVP Q6H PRN MUSCLE SPASM Metoprolol Tartrate 25 mg 07/25/16 10:00 07/25/16 18:23 Lopressor PO 25 mg BID [facility] Administration Nicotine 1 patch 07/25/16 16:45 07/25/16 18:34 Nicoderm Cq TD Not Given DAILY [facility] Ramipril 1.25 mg 07/26/16 10:00 Altace PO DAILY [facility] Zolpidem Tartrate 5 mg 07/25/16 09:14 07/25/16 22:31 Ambien PO 5 mg HS PRN Administration Insomnia - Patient Studies Lab Studies: Lab Studies 07/26/16 07/25/16 07/25/16 Range/Units 06:00 15:58 13:20 WBC 6.8 (4.5-11.0) 10^3/ul RBC 3.79 (3.5-6.1) 10^6/uL Hgb 12.2 L (14.0-18.0) gm/dL Hct 33.5 L (42.0-52.0) % MCV 88.4 (80.0-105.0) fL MCH 32.2 (25.0-35.0) pg MCHC 36.4 (31.0-37.0) g/dl RDW 12.2 (11.5-14.5) % Plt Count 218 (120.0-450.0) 10^3/uL MPV 9.8 (7.0-11.0) fl Gran % 68.4 H (50.0-68.0) % Lymph % (Auto) 21.6 L (22.0-35.0) % [place] % (Auto) 9.2 H (1.0-6.0) % Eos % (Auto) 0.7 L (1.5-5.0) % Baso % (Auto) 0.1 (0.0-3.0) % Gran # 4.63 (1.4-6.5) Lymph # 1.5 (1.2-3.4) [place] # 0.6 (0.1-0.6) Eos # 0.1 (0.0-0.7) Baso # 0.01 (0.0-2.0) K/mm3 Sodium 131 L (132-148) mmol/L Potassium 4.4 (3.6-5.0) mmol/L Chloride 100 (98-107) mmol/L Carbon Dioxide 23 (21-33) mmol/L Anion Gap 12 (10-20) BUN 22 H (7-21) mg/dL Creatinine 0.9 (0.5-1.4) mg/dL Est GFR ( Amer) > 60 Est GFR (Non-Af Amer) > 60 POC Glucose (mg/dL) 245 H (65-110) mg/dL Random Glucose 245 H (70-110) mg/dL Calcium 8.5 (8.4-10.5) mg/dL Lactate Dehydrogenase 685 (333-699) U/L Total Creatine Kinase 627 H (35-230) U/L CK-MB (CK-2) 42.1 H (0.0-3.6) ng/mL CK-MB (CK-2) % 6.7 H (2.5-3.0) % Troponin I 28.30 H* D ng/mL 07/25/16 Range/Units 13:20 WBC 8.2 D (4.5-11.0) 10^3/ul RBC 4.25 (3.5-6.1) 10^6/uL Hgb 13.7 L (14.0-18.0) gm/dL Hct 37.8 L (42.0-52.0) % MCV 88.9 (80.0-105.0) fL MCH 32.2 (25.0-35.0) pg MCHC 36.2 (31.0-37.0) g/dl RDW 12.4 (11.5-14.5) % Plt Count 194 (120.0-450.0) 10^3/uL MPV 10.3 (7.0-11.0) fl Gran % 68.8 H (50.0-68.0) % Lymph % (Auto) 23.4 (22.0-35.0) % [place] % (Auto) 7.3 H (1.0-6.0) % Eos % (Auto) 0.4 L (1.5-5.0) % Baso % (Auto) 0.1 (0.0-3.0) % Gran # 5.65 (1.4-6.5) Lymph # 1.9 (1.2-3.4) [place] # 0.6 (0.1-0.6) Eos # 0.0 (0.0-0.7) Baso # 0.01 (0.0-2.0) K/mm3 Sodium (132-148) mmol/L Potassium (3.6-5.0) mmol/L Chloride (98-107) mmol/L Carbon Dioxide (21-33) mmol/L Anion Gap (10-20) BUN (7-21) mg/dL Creatinine (0.5-1.4) mg/dL Est GFR ( Amer) Est GFR (Non-Af Amer) POC Glucose (mg/dL) (65-110) mg/dL Random Glucose (70-110) mg/dL Calcium (8.4-10.5) mg/dL Lactate Dehydrogenase (333-699) U/L Total Creatine Kinase (35-230) U/L CK-MB (CK-2) (0.0-3.6) ng/mL CK-MB (CK-2) % (2.5-3.0) % Troponin I ng/mL Laboratory Results - last 24 hr 07/25/16 07/25/16 07/25/16 13:20 13:20 15:58 WBC 8.2 D RBC 4.25 Hgb 13.7 L Hct 37.8 L MCV 88.9 MCH 32.2 MCHC 36.2 RDW 12.4 Plt Count 194 MPV 10.3 Gran % 68.8 H Lymph % (Auto) 23.4 [place] % (Auto) 7.3 H Eos % (Auto) 0.4 L Baso % (Auto) 0.1 Gran # 5.65 Lymph # 1.9 [place] # 0.6 Eos # 0.0 Baso # 0.01 Sodium 131 L Potassium 4.4 Chloride 100 Carbon Dioxide 23 Anion Gap 12 BUN 22 H Creatinine 0.9 Est GFR ( Amer) > 60 Est GFR (Non-Af Amer) > 60 POC Glucose (mg/dL) 245 H Random Glucose 245 H Calcium 8.5 Lactate Dehydrogenase 685 Total Creatine Kinase 627 H CK-MB (CK-2) 42.1 H CK-MB (CK-2) % 6.7 H Troponin I 28.30 H* D 07/26/16 06:00 WBC 6.8 RBC 3.79 Hgb 12.2 L Hct 33.5 L MCV 88.4 MCH 32.2 MCHC 36.4 RDW 12.2 Plt Count 218 MPV 9.8 Gran % 68.4 H Lymph % (Auto) 21.6 L [place] % (Auto) 9.2 H Eos % (Auto) 0.7 L Baso % (Auto) 0.1 Gran # 4.63 Lymph # 1.5 [place] # 0.6 Eos # 0.1 Baso # 0.01 Sodium Potassium Chloride Carbon Dioxide Anion Gap BUN Creatinine Est GFR ( Amer) Est GFR (Non-Af Amer) POC Glucose (mg/dL) Random Glucose Calcium Lactate Dehydrogenase Total Creatine Kinase CK-MB (CK-2) CK-MB (CK-2) % Troponin I EKG/Cardiology Studies: Cardiology / EKG Studies 07/25/16 06:59 EKG [ELECTROCARDIOGRAM] Stat Comment: Reason For Exam: CHEST PAIN 07/25/16 09:12 ELECTROCARDIOGRAM Urgent Comment: 12 lead EKG upon arrival in unit Reason For Exam: post ptca 07/26/16 09:15 ELECTROCARDIOGRAM DAILY Comment: Reason For Exam: chest pain Critical Care Progress Note - Nutrition Nutrition: Nutrition Category Date Time Status Heart Healthy Diet [DIET] Diets 07/25/16 Breakfast Ordered Assessment/Plan - Assessment and Plan (Free Text) Plan: 61 M, "borderline diabetics" and current active smoker of 40 pack-years, had inferior/lateral STEMI, rapid a-fib, s/p Code heart. L cir was 100 blocked, 3 KAILA were placed on 07/25/16. Neuro AAOx3 Ambien PRN nicoderm patch Tobacco cessation counseling Cardio EKG this AM: NSR, LAFB, Inferior-posterior infarct, evolving ASA 81, plavix 75, metoprolol 25 bid, lipitor 80; restart home ramipril 1.25 today integrillin x 18 hours hydralazine 10 PO QID prn Pulm 2L nC PRN, maintain SaO2 > 95% GI Heart health diet Docusate 100 bid Renal NS@50 Endo A1c is 10 - uncontrolled diabetes; Add Levemir 5, ISSS-achs TSH normal HDL 26 Dispo Transfer to tele, primary agreed Will S/R/D/w Dr. Jones - Date & Time Date: 07/26/16 Time: 06:55 <Pete Jones - Last Filed: 07/26/16 15:24> CCU Objective - Vital Signs / Intake & Output Vital Signs (Last 4 hours): Vital Signs Temp Pulse Resp BP 07/26/16 13:00 86 21 07/26/16 12:50 90 20 07/26/16 12:40 84 07/26/16 12:30 85 21 07/26/16 12:20 89 16 07/26/16 12:10 83 07/26/16 12:00 88 137/49 L 07/26/16 11:58 98.7 F 07/26/16 11:50 83 17 07/26/16 11:40 83 23 07/26/16 11:30 93 H Intake and Output (Last 8hrs): Intake & Output 07/26/16 07/26/16 07/26/16 06:59 14:59 22:59 Intake Total 700 Output Total 800 Balance -100 Weight 190 lb Intake: IV 500 Left Forearm 500 Oral 200 Output: Urine 800 Urine, Voided 800 Other: # Bowel Movements 0 - Medications Active Medications: Active Medications Generic Name Dose Route Start Last Admin Trade Name Freq PRN Reason Stop Dose Admin Aspirin 81 mg 07/26/16 10:00 07/26/16 09:12 Ecotrin PO 81 mg DAILY HENNY Administration Atorvastatin Calcium 80 mg 07/25/16 17:00 07/25/16 18:23 Lipitor PO 80 mg DIN HENNY Administration Camphor/Menthol 0 gm 07/25/16 18:00 07/26/16 13:15 Bengay TOP 1 applic TID HENNY Administration Clopidogrel Bisulfate 75 mg 07/26/16 10:00 07/26/16 09:10 Plavix PO 75 mg DAILY HENNY Administration Docusate Sodium 100 mg 07/25/16 10:00 07/26/16 09:02 Colace PO Not Given BID HENNY Hydralazine HCl 10 mg 07/25/16 09:35 Apresoline PO QID PRN For SBP>170 and Diastolic>100 Insulin Detemir 5 unit 07/26/16 22:00 Levemir SC HS HENNY Insulin Human Regular 0 units 07/26/16 16:30 Humulin R Low SC ACHS [facility] Protocol Ketorolac Tromethamine 15 mg 07/25/16 16:51 Toradol IVP Q6H PRN MUSCLE SPASM Metoprolol Tartrate 25 mg 07/25/16 10:00 07/26/16 09:09 Lopressor PO 25 mg BID HENNY Administration Ramipril 1.25 mg 07/26/16 10:00 07/26/16 09:09 Altace PO 1.25 mg DAILY [facility]ENNY Administration Zolpidem Tartrate 5 mg 07/25/16 09:14 07/25/16 22:31 Ambien PO 5 mg HS PRN Administration Insomnia - Patient Studies Lab Studies: Lab Studies 07/26/16 07/26/16 07/26/16 Range/Units 07:19 06:00 06:00 WBC (4.5-11.0) 10^3/ul RBC (3.5-6.1) 10^6/uL Hgb (14.0-18.0) gm/dL Hct (42.0-52.0) % MCV (80.0-105.0) fL MCH (25.0-35.0) pg MCHC (31.0-37.0) g/dl RDW (11.5-14.5) % Plt Count (120.0-450.0) 10^3/uL MPV (7.0-11.0) fl Gran % (50.0-68.0) % Lymph % (Auto) (22.0-35.0) % [place] % (Auto) (1.0-6.0) % Eos % (Auto) (1.5-5.0) % Baso % (Auto) (0.0-3.0) % Gran # (1.4-6.5) Lymph # (1.2-3.4) [place] # (0.1-0.6) Eos # (0.0-0.7) Baso # (0.0-2.0) K/mm3 Sodium (132-148) mmol/L Potassium (3.6-5.0) mmol/L Chloride (98-107) mmol/L Carbon Dioxide (21-33) mmol/L Anion Gap (10-20) BUN (7-21) mg/dL Creatinine (0.5-1.4) mg/dL Est GFR ( Amer) Est GFR (Non-Af Amer) POC Glucose (mg/dL) 253 H (65-110) mg/dL Random Glucose (70-110) mg/dL Hemoglobin A1c 10.8 H (4.2-6.5) % Calcium (8.4-10.5) mg/dL Phosphorus (2.5-4.5) mg/dL Magnesium (1.7-2.2) mg/dL Total Bilirubin (0.2-1.3) mg/dL AST (15-59) U/L ALT (7-56) U/L Alkaline Phosphatase (38-133) U/L Lactate Dehydrogenase (333-699) U/L Total Creatine Kinase (35-230) U/L CK-MB (CK-2) (0.0-3.6) ng/mL CK-MB (CK-2) % (2.5-3.0) % Troponin I ng/mL Total Protein (5.8-8.3) g/dL Albumin (3.0-4.8) g/dL Globulin gm/dL Albumin/Globulin Ratio (1.1-1.8) Triglycerides (35-160) mg/dL Cholesterol (130-200) mg/dL LDL Cholesterol Direct (0-129) mg/dL HDL Cholesterol (29-60) mg/dL TSH 3rd Generation 1.99 (0.46-4.68) mIU/mL 07/26/16 07/26/16 07/25/16 Range/Units 06:00 06:00 21:51 WBC 6.8 (4.5-11.0) 10^3/ul RBC 3.79 (3.5-6.1) 10^6/uL Hgb 12.2 L (14.0-18.0) gm/dL Hct 33.5 L (42.0-52.0) % MCV 88.4 (80.0-105.0) fL MCH 32.2 (25.0-35.0) pg MCHC 36.4 (31.0-37.0) g/dl RDW 12.2 (11.5-14.5) % Plt Count 218 (120.0-450.0) 10^3/uL MPV 9.8 (7.0-11.0) fl Gran % 68.4 H (50.0-68.0) % Lymph % (Auto) 21.6 L (22.0-35.0) % [place] % (Auto) 9.2 H (1.0-6.0) % Eos % (Auto) 0.7 L (1.5-5.0) % Baso % (Auto) 0.1 (0.0-3.0) % Gran # 4.63 (1.4-6.5) Lymph # 1.5 (1.2-3.4) [place] # 0.6 (0.1-0.6) Eos # 0.1 (0.0-0.7) Baso # 0.01 (0.0-2.0) K/mm3 Sodium 133 (132-148) mmol/L Potassium 4.2 (3.6-5.0) mmol/L Chloride 101 (98-107) mmol/L Carbon Dioxide 27 (21-33) mmol/L Anion Gap 9 L (10-20) BUN 23 H (7-21) mg/dL Creatinine 1.0 (0.5-1.4) mg/dL Est GFR ( Amer) > 60 Est GFR (Non-Af Amer) > 60 POC Glucose (mg/dL) 318 H (65-110) mg/dL Random Glucose 244 H (70-110) mg/dL Hemoglobin A1c (4.2-6.5) % Calcium 8.5 (8.4-10.5) mg/dL Phosphorus 2.7 (2.5-4.5) mg/dL Magnesium 2.2 (1.7-2.2) mg/dL Total Bilirubin 1.4 H (0.2-1.3) mg/dL AST 85 H (15-59) U/L ALT 45 (7-56) U/L Alkaline Phosphatase 90 (38-133) U/L Lactate Dehydrogenase 623 (333-699) U/L Total Creatine Kinase 368 H (35-230) U/L CK-MB (CK-2) 15.0 H (0.0-3.6) ng/mL CK-MB (CK-2) % 4.1 H (2.5-3.0) % Troponin I 23.50 H* ng/mL Total Protein 6.0 (5.8-8.3) g/dL Albumin 3.2 (3.0-4.8) g/dL Globulin 2.8 gm/dL Albumin/Globulin Ratio 1.1 (1.1-1.8) Triglycerides 176 H (35-160) mg/dL Cholesterol 173 (130-200) mg/dL LDL Cholesterol Direct 125 (0-129) mg/dL HDL Cholesterol 26 L (29-60) mg/dL TSH 3rd Generation (0.46-4.68) mIU/mL 07/25/16 Range/Units 15:58 WBC (4.5-11.0) 10^3/ul RBC (3.5-6.1) 10^6/uL Hgb (14.0-18.0) gm/dL Hct (42.0-52.0) % MCV (80.0-105.0) fL MCH (25.0-35.0) pg MCHC (31.0-37.0) g/dl RDW (11.5-14.5) % Plt Count (120.0-450.0) 10^3/uL MPV (7.0-11.0) fl Gran % (50.0-68.0) % Lymph % (Auto) (22.0-35.0) % [place] % (Auto) (1.0-6.0) % Eos % (Auto) (1.5-5.0) % Baso % (Auto) (0.0-3.0) % Gran # (1.4-6.5) Lymph # (1.2-3.4) [place] # (0.1-0.6) Eos # (0.0-0.7) Baso # (0.0-2.0) K/mm3 Sodium (132-148) mmol/L Potassium (3.6-5.0) mmol/L Chloride (98-107) mmol/L Carbon Dioxide (21-33) mmol/L Anion Gap (10-20) BUN (7-21) mg/dL Creatinine (0.5-1.4) mg/dL Est GFR ( Amer) Est GFR (Non-Af Amer) POC Glucose (mg/dL) 245 H (65-110) mg/dL Random Glucose (70-110) mg/dL Hemoglobin A1c (4.2-6.5) % Calcium (8.4-10.5) mg/dL Phosphorus (2.5-4.5) mg/dL Magnesium (1.7-2.2) mg/dL Total Bilirubin (0.2-1.3) mg/dL AST (15-59) U/L ALT (7-56) U/L Alkaline Phosphatase (38-133) U/L Lactate Dehydrogenase (333-699) U/L Total Creatine Kinase (35-230) U/L CK-MB (CK-2) (0.0-3.6) ng/mL CK-MB (CK-2) % (2.5-3.0) % Troponin I ng/mL Total Protein (5.8-8.3) g/dL Albumin (3.0-4.8) g/dL Globulin gm/dL Albumin/Globulin Ratio (1.1-1.8) Triglycerides (35-160) mg/dL Cholesterol (130-200) mg/dL LDL Cholesterol Direct (0-129) mg/dL HDL Cholesterol (29-60) mg/dL TSH 3rd Generation (0.46-4.68) mIU/mL Laboratory Results - last 24 hr 07/25/16 07/25/16 07/26/16 15:58 21:51 06:00 WBC 6.8 RBC 3.79 Hgb 12.2 L Hct 33.5 L MCV 88.4 MCH 32.2 MCHC 36.4 RDW 12.2 Plt Count 218 MPV 9.8 Gran % 68.4 H Lymph % (Auto) 21.6 L [place] % (Auto) 9.2 H Eos % (Auto) 0.7 L Baso % (Auto) 0.1 Gran # 4.63 Lymph # 1.5 [place] # 0.6 Eos # 0.1 Baso # 0.01 Sodium Potassium Chloride Carbon Dioxide Anion Gap BUN Creatinine Est GFR ( Amer) Est GFR (Non-Af Amer) POC Glucose (mg/dL) 245 H 318 H Random Glucose Hemoglobin A1c Calcium Phosphorus Magnesium Total Bilirubin AST ALT Alkaline Phosphatase Lactate Dehydrogenase Total Creatine Kinase CK-MB (CK-2) CK-MB (CK-2) % Troponin I Total Protein Albumin Globulin Albumin/Globulin Ratio Triglycerides Cholesterol LDL Cholesterol Direct HDL Cholesterol TSH 3rd Generation 07/26/16 07/26/16 07/26/16 06:00 06:00 06:00 WBC RBC Hgb Hct MCV MCH MCHC RDW Plt Count MPV Gran % Lymph % (Auto) [place] % (Auto) Eos % (Auto) Baso % (Auto) Gran # Lymph # [place] # Eos # Baso # Sodium 133 Potassium 4.2 Chloride 101 Carbon Dioxide 27 Anion Gap 9 L BUN 23 H Creatinine 1.0 Est GFR ( Amer) > 60 Est GFR (Non-Af Amer) > 60 POC Glucose (mg/dL) Random Glucose 244 H Hemoglobin A1c 10.8 H Calcium 8.5 Phosphorus 2.7 Magnesium 2.2 Total Bilirubin 1.4 H AST 85 H ALT 45 Alkaline Phosphatase 90 Lactate Dehydrogenase 623 Total Creatine Kinase 368 H CK-MB (CK-2) 15.0 H CK-MB (CK-2) % 4.1 H Troponin I 23.50 H* Total Protein 6.0 Albumin 3.2 Globulin 2.8 Albumin/Globulin Ratio 1.1 Triglycerides 176 H Cholesterol 173 LDL Cholesterol Direct 125 HDL Cholesterol 26 L TSH 3rd Generation 1.99 07/26/16 07:19 WBC RBC Hgb Hct MCV MCH MCHC RDW Plt Count MPV Gran % Lymph % (Auto) [place] % (Auto) Eos % (Auto) Baso % (Auto) Gran # Lymph # [place] # Eos # Baso # Sodium Potassium Chloride Carbon Dioxide Anion Gap BUN Creatinine Est GFR ( Amer) Est GFR (Non-Af Amer) POC Glucose (mg/dL) 253 H Random Glucose Hemoglobin A1c Calcium Phosphorus Magnesium Total Bilirubin AST ALT Alkaline Phosphatase Lactate Dehydrogenase Total Creatine Kinase CK-MB (CK-2) CK-MB (CK-2) % Troponin I Total Protein Albumin Globulin Albumin/Globulin Ratio Triglycerides Cholesterol LDL Cholesterol Direct HDL Cholesterol TSH 3rd Generation EKG/Cardiology Studies: Cardiology / EKG Studies 07/26/16 09:15 ELECTROCARDIOGRAM DAILY Comment: Reason For Exam: chest pain Critical Care Progress Note - Nutrition Nutrition: Nutrition Category Date Time Status Heart Healthy Diet [DIET] Diets 07/25/16 Breakfast Ordered Addendum Addendum: 07/26/16 15:22 patient was seen, examined and discussed with Dr. Engel. her note reflects my exam, assessment and plan, except as below. Meds/Labs/ONE reviewed. 61 yo male with STEMI, s/p 3 stents. Continue DAP, bb, statins. Patient is hemodyanmically and respiratory kramer stable. ok to downgrade to tele ccm time 40 min
[2016-07-26] MEDS: Menthol/Methyl Salicylate Ointment(1 oz) TOP SCH ×3 (09:12→17:53)
--- NOTE | 2016-07-26 11:03 | CARD ---
APPROVED REPORT EKG Measurement Heart [id number] <Conclusion> Normal sinus rhythm Left anterior fascicular block Inferior-posterior infarct, evolving
--- NOTE | 2016-07-26 11:40 | PN ---
DATE: 07/26/2016 REASON FOR CONSULTATION AND FOLLOWUP: Acute inferolateral NC, status post code STEMI, status post pr imary angioplasty of a totally occluded circ. BRIEF CLINICAL HISTORY: The patient denies any chest pain, shortness of breath, any palpitation. PHYSICAL EXAMINATION: VITAL SIGNS: Temperature afebrile, heart rate 88, blood pressure 112/62. HEENT: PERRLA. Extraocular muscles intact. NECK: Supple. No carotid bruits. No thyromegaly. CHEST: Clear to auscultation. HEART: S1, S2 regular. ABDOMEN: Soft. EXTREMITIES: Clubbing and cyanosis negative. LABORATORY DATA: Blood workup as follows: WBC 6.2, hemoglobin 12.0, hematocrit 33.5, platelet count 218. Chemistry shows sodium 130, potassium 4.2, chloride 102, carbon dioxide 27, anion gap of 9, BU N 23, creatinine 1.0. Troponin 23.5. EKG shows normal sinus, ST elevation Q-waves in II, III, aVF w ith ST depression in lead V2, V3. ST elevation laterally normalizes. IMPRESSION: Status post acute code ST elevation myocardial infarction, inferolateral wall, status po st totally occluded circumflex, status post percutaneous transluminal coronary angioplasty of a total ly occluded of circumflex, hyperlipidemia, diabetes, poorly controlled, hemoglobin A1c pending. Tota l cholesterol 173, LDL 125, HDL 26. TSH 1.99. Troponin is trending down. Active tobacco abuse. RECOMMENDATION: Continue baby aspirin. Continue ramipril 1.25 mg. Continue atorvastatin 80 mg dillon y. Continue metoprolol. Continue Plavix 75 mg daily. Echo was done yesterday that shows ejection f raction 35-40%. We will get MUGA scan to assess LV function to assess the need of AICD in future. W e will transfer to telemetry. Thank you, Dr. Iniguez, for providing us the opportunity in taking care of the patient. Blaine Craft MD cc:Blaine Iniguez MD [id number] TT: 07/26/2016 11:39:23 Confirmation # [id number] Dictation # [id number] tn
[2016-07-26] MEDS ORDERED: Insulin Regular 1 UNITS/0.01 ML ML SC ONE (13:19)
[2016-07-26] MEDS: Insulin Reg-LOW-Coverage SC SCH ×2 (17:48→23:25)
[2016-07-26] MEDS: Insulin Detemir 100 units/ml Vial (Levemir) SC SCH (23:24)
[2016-07-27] MEDS: Insulin Reg-LOW-Coverage SC SCH ×4 (09:09→21:33)
[2016-07-27 10:01] LABS: ADD MANUAL DIFF? NO
[2016-07-27 10:15] LABS: BASO # 0.01 K/mm3 (0.0-2.0); BASO % 0.2 % (0.0-3.0); EOS # 0.1 (0.0-0.7); EOS % 0.9 % (1.5-5.0); GRAN % 69.5 % (50.0-68.0); HEMATOCRIT 32.6 % (42.0-52.0); LYMPH # 1.4 (1.2-3.4); LYMPH % 21.5 % (22.0-35.0); MEAN CELL VOLUME 88.8 fL (80.0-105.0); MEAN CORPUSCULAR HEMOGLOBIN 31.9 pg (25.0-35.0); MEAN CORPUSCULAR HGB CONC 35.9 g/dl (31.0-37.0); MEAN PLATELET VOLUME 9.7 fl (7.0-11.0); MONO # 0.5 (0.1-0.6); MONO % 7.9 % (1.0-6.0); PLATELET COUNT 216 10^3/uL (120.0-450.0); WHITE BLOOD COUNT 6.3 10^3/ul (4.5-11.0)
--- NOTE | 2016-07-27 10:25 | PN ---
DATE: 07/27/2016 REASON FOR CONSULTATION AND FOLLOWUP: Acute inferolateral myocardial infarction, status post code ST LETY, status post primary angioplasty of totally occluded circumflex artery. BRIEF CLINICAL HISTORY: This is a 61-year-old male with a past medical history of diabetes, active t obacco abuse, not on medication. Admitted with an acute inferolateral HI, status post emergent cardi ac catheterization and PTCA of totally occluded circ. Now, patient denies any chest pain, shortness of breath, any palpitation. PHYSICAL EXAMINATION: VITAL SIGNS: Temperature afebrile, heart rate 80, blood pressure 114/57. HEENT: PERRLA. Extraocular muscles intact. NECK: Supple. No carotid bruits. No thyromegaly. CHEST: Clear to auscultation. HEART: S1, S2 regular. ABDOMEN: Soft. EXTREMITIES: Clubbing, cyanosis negative. BLOOD WORKUP: WBC 6.8, hemoglobin 12.2, hematocrit 33.5, platelet count 218. Chemistry shows sodium 133, 101, carbon dioxide 27, anion gap of 9, BUN 23, creatinine 1.0. Today's lab is pending. Troponin 23.5. IMPRESSION: Acute inferolateral myocardial infarction, active tobacco abuse, hyperlipidemia, hyperte nsion, diabetes, status post primary angioplasty of the circumflex, ejection fraction 35%. RECOMMENDATION: Continue baby aspirin. Continue metoprolol. Continue Plavix. Continue ramipril 1. 25 mg daily. Will start metformin, started 500 b.i.d. as well as add Januvia. Will get a MUGA scan today. Further recommendation upon hospital course. Will follow with you. Thank you, , for providing us the opportunity in taking care of the patient. Will follow wi th you. Blaine Craft MD cc: [id number] TT: 07/27/2016 10:00:45 Confirmation # [id number] Dictation # [id number] en
[2016-07-27 10:27] LABS: BLOOD UREA NITROGEN 22 mg/dL (7-21); CALCIUM 8.7 mg/dL (8.4-10.5); CARBON DIOXIDE 28 mmol/L (21-33); CHLORIDE 98 mmol/L (98-107); GFR AFRICAN-AMERICAN > 60; GLUCOSE,RANDOM 285 mg/dL (70-110); POTASSIUM 4.2 mmol/L (3.6-5.0); SODIUM 132 mmol/L (132-148)
[2016-07-27] MEDS: Menthol/Methyl Salicylate Ointment(1 oz) TOP SCH ×3 (11:51→17:43)
--- NOTE | 2016-07-27 20:52 | CARD ---
APPROVED REPORT INDICATION Acute SD EVALUATE LV AND RV EF% ,S/P IW SD PROCEDURE The above named patient recieved 26.3 millicuries of Tc99m tagged red blood cells intravenously. After achieving equilibrium, gated imaging of 16/frame/cycle was performed utillizing Gamma camera interfaced with a digital computer and gated device. Gated imaging was then performed in the left anterior oblique, anterior, and the left lateral projections. Findings Left Ventricle: The quality of the study is good. The left ventricle is moderately enlarged. The right ventricle is normal in size. Wall motion study shows inferolateral hypokinesis of the left ventricle. The remainder of the LV shows good contractility. RV wall motion is normal. The right atrium is dynamic. The remainder of the study is unremarkable. Impressions Normal overall LV function despite inferolateral hypokinesis. LVEF = 56%. Normal RV wall motion.
[2016-07-27] MEDS: Insulin Detemir 100 units/ml Vial (Levemir) SC SCH (21:33)
--- NOTE | 2016-07-27 22:47 | DS ---
BRIEF CLINICAL HISTORY: This is a 61-year-old, active tobacco abuse, history of diabetes not on medi cation, admitted with acute inferior wall MT. The patient subsequently underwent emergency angioplas ty, cardiac catheterization and angioplasty of circumflex, totally occluded. His hospital course rem ained uneventful. The patient went for MUGA scan ____ . The patient is currently being discharged t omorrow morning with plan to follow up in [address] Craft. MEDICATION AT The TIME OF DISCHARGE INCLUDES: Baby aspirin 81 mg daily, metoprolol 25 mg daily, pred nisone 5 mg daily, atorvastatin 80 mg daily, metformin 500 mg daily, Januvia 100 mg daily, ramipril 1 .25 mg daily. LABORATORY DATA: Admitting triglyceride 176, cholesterol 176, LDL 125. TSH 1.99. Blood sugar is no w 188 on Januvia and metformin. We will follow with you. Thank you, ____, for providing the opportunity in taking care of the patient. FINAL DIAGNOSES: Acute inferolateral myocardial infarction, status post primary angioplasty of circu mflex, status post cardiac catheterization. Blaine Craft MD cc: [facility] TT: 07/27/2016 22:46:49 gi
[2016-07-28 00:19] VITALS: RESP 18
[2016-07-28 08:03] VITALS: TEMP 98.8; O2SAT 99
[2016-07-28] MEDS: Insulin Reg-LOW-Coverage SC SCH (08:35)
[2016-07-28] MEDS: Menthol/Methyl Salicylate Ointment(1 oz) TOP SCH (09:48)
[2016-07-28 09:51] VITALS: BP 97/57
[2016-07-28 11:56] VITALS: PULSE 82
--- NOTE | 2016-07-28 20:02 | CARD ---
APPROVED REPORT Procedure(s) performed: Left Heart Catheterization PTCA with Stenting of proximal, Mid and distal cirrcumflex with KAILA ( Very Complex PTCA) HISTORY The patient is a 61 year-old male with a history of : diabetes mellitus with no treatment , tobacco history() : The patient is a current smoker , Hx of T2 DM on no Meds admitted with STEMI. INDICATION The indication(s) include : STEMI (>0 to less than or equal to 6 hours). CASE TECHNIQUE The patient was brought emergently to the Cardiac Catheterization Laboratory in a fasting state and was prepped and draped in a sterile manner. The left wrist was infiltrated with 2% Lidocaine subcutaneous anesthesia. A 6 Fr Glidesheath (Radial) sheath was inserted into the left radial artery without difficulty. Coronary angiography was performed using coronary diagnostic catheters. The left coronary system was accessed and visualized with a Diagnostic ,6 Fr JL 4 catheter. The right coronary system was accessed and visualized with a Diagnostic ,6 Fr JR 4 catheter. The left ventricle was accessed and visualized with a 6 Fr Pigtail catheter. Left ventricular/Aortic Valve gradient assessed on pullback. Left ventriculogram was performed in BIANCHI projection. Closure device was deployed with a Fr TR Band (Large) without any complications. Vessel Analysis The patient's coronary anatomy is right dominant. The left main coronary artery is a size vessel left main does nt exist and has two separate ostium of LAd and circumflex.. The left anterior descending artery is a large size vessel with diffuse calcification noted throughout this vessel and without significant stenosis. There is a 40% stenosis in the mid segment. The first diagonal branch is a medium size vessel with diffuse calcification noted throughout this vessel and without significant stenosis. The second diagonal branch is a medium size vessel with diffuse calcification noted throughout this vessel and without significant stenosis. The circumflex artery is a large size vessel with diffuse calcification noted throughout this vessel and with significant stenosis. There is a 100% stenosis in the mid segment. and has proximal 805 stenosis The first obtuse marginal branch is a medium size vessel with diffuse calcification noted throughout this vessel and without significant stenosis. The right coronary artery is a medium size vessel with diffuse calcification noted throughout this vessel and with significant stenosis. There is a 100% stenosis in the ostial segment. Very well collateralized from LAD Left Ventricle The left ventricle is Bordrline enlarged in size with moderately decreased contractility. Ischemic cardiomyopathy. The left ventricular ejection fraction is estimated to be 35%. The left ventricular end diastolic pressure is 15 mmHg. There was no gradient across the aortic valve upon pullback. PCI Technique Lesion Anticoagulation was achieved with Heparin. Percutaneous coronary intervention was performed on the distal circumflex artery segment. The lesion stenosis prior to intervention was 100% with ERROL 0 flow. A 6 Fr XB 3.5 Guide Catheter was used to engage the ostium. BALLOON DILATION A Balloon catheter 2.0 x 15 mm Mini Trek OTW was inserted and inflated up to 10.00atm for 12seconds. STENT DEPLOYMENT A drug-eluting stent 2.5 x 28 mm Alpine KAILA was inserted and inflated up to ratna for seconds. Final angiography reveals 0 % stenosis with ERROL 2 flow. PCI Technique Lesion 2 Percutaneous Coronary Intervention was performed on the mid circumflex artery segment. The lesion stenosis prior to intervention was 100% with ERROL 0 flow. A 6 Fr XB 3.5 Guide Catheter was used to engage the ostium. BALLOON DILATION A Balloon catheter 2.0 x 30 mm Sprinter RX was inserted and inflated up to 10.00atm for 22seconds. STENT DEPLOYMENT A drug-eluting stent 2.5 x 28 mm Alpine KAILA was inserted and inflated up to 12.00atm for 16seconds. Final angiography reveals 100 % stenosis with ERROL 0 flow. PCI Technique Lesion 3 Percutaneous Coronary Intervention was performed on the proximal circumflex artery segment. The lesion stenosis prior to intervention was 80% with ERROL 1 flow. A 6 Fr XB 3.5 Guide Catheter was used to engage the ostium. BALLOON DILATION A Balloon catheter 2.5 x 15 mm Sprinter OTW was inserted and inflated up to 12atm for 20seconds. STENT DEPLOYMENT A drug-eluting stent 2.75 x 38 mm Alpine KAILA was inserted and inflated up to 14atm for 20seconds. Final angiography reveals 0 % stenosis with ERROL 3 flow. Conclusion Two separate Ostium for LAD and CX( No Left Main) Two vessel critical CAD RCA BRICK MASON well collateralized from LAD Circumflex mid occluded thought to be culprit for this STEMI event Moderate Disease in Mid LAD moderately decreased LV Fx. EF-35%, EDP-15 mmof Hg. Successful PTCA of Proximal ,mid, and Distal Circumflex using three KAILA ( Complex PTCA) Recommendations Smoking Cessation Cardiac Rehabilitation ReferralDaily ASA with Plavix for at least one year Aggressive Medical TherapyCardiac Risk Reduction Program Weight Loss Reduction Program Aggressive control of DM F/U MUGA Scan to Assess LV FX before DC home Cc: dr. Iniguez
--- NOTE | 2016-07-31 11:15 | CARD ---
APPROVED REPORT EXAM: Two-dimensional and M-mode echocardiogram with Doppler and color Doppler. INDICATION IA 2D DIMENSIONS Left Atrium (2D)4.1 (1.6-4.0cm)IVSd1.3 (0.7-1.1cm) LVDd5.7 (3.9-5.9cm)PWd1.2 (0.7-1.1cm) LVDs4.6 (2.5-4.0cm)FS (%) 18.9 % LVEF (%)38.6 (>50%) M-Mode DIMENSIONS Aortic Root3.50 (2.2-3.7cm)Aortic Cusp Exc.1.80 (1.5-2.0cm) Aortic Valve AoV Peak Gopmtlmr755.0cm/Sandrine Peak GR.10mmHg Mitral Valve MV E Uiwizpdw85.0cm/sMV A Qwlqapfn83.3cm/sE/A ratio1.3 TDI E/Lateral E'0.0E/Medial E'0.0 Tricuspid Valve TR Peak [id number]/sRAP [id number] Peak Gr.16mmHg [id number] LEFT VENTRICLE The left ventricle is normal size. There is mild concentric left ventricular hypertrophy. The systolic function is moderately impaired.EF-35% Regional wall motion abnormalities noted. There is moderate to severe hypokinesis in the mid-inferolateral wall. Transmitral Doppler flow pattern is Grade III-reversible restrictive diastolic dysfunction. No left ventricle thrombus noted on this study. There is no ventricular septal defect visualized. There is no left ventricular aneurysm. There is no mass noted in the left ventricle. RIGHT VENTRICLE The right ventricle is normal size. There is normal right ventricular wall thickness. ATRIA The left atrium is borderline dilated. The right atrium size is normal. The interatrial septum is intact with no evidence for an atrial septal defect. AORTIC VALVE The aortic valve is normal in structure. No aortic regurgitation is present. There is no aortic valvular stenosis. There is no aortic valvular vegetation. MITRAL VALVE The mitral valve is thickened but opens well. Mitral regurgitation is mild to moderate. There is no mitral valve stenosis. There is no evidence of mitral valve prolapse. TRICUSPID VALVE The tricuspid valve is normal in structure. There is trace tricuspid regurgitation.RVSP-31 mmof Hg. There is no tricuspid valve stenosis. There is no tricuspid valve prolapse or vegetation. PULMONIC VALVE The pulmonary valve is normal in structure. There is no pulmonic valvular regurgitation. There is no pulmonic valvular stenosis. GREAT VESSELS The aortic root is normal in size. The ascending aorta is normal in size. The pulmonary artery is normal. The IVC is normal in size and collapses >50% with inspiration. PERICARDIAL EFFUSION There is no pleural effusion. There is no pericardial effusion. <Conclusion> The left ventricle is normal size. There is mild concentric left ventricular hypertrophy. The systolic function is moderately impaired.EF-35% Mitral regurgitation is mild to moderate. There is trace tricuspid regurgitation.RVSP-31 mmof Hg. S/p Code STEMI, S/p PTCA of Occluded Cx, RCA ..TIRE FABRICATOR.
== END 2016-07-28 12:17 | disposition home or self-care (01) | DRG 247 ==
LOC: ED 06:53 → ERH 07:21 → CCU 09:27 → 2RNO 07-26 16:26
PROVIDERS: ADMIT Internal Medicine Cardiovascular Disease; ATTEND Internal Medicine Cardiovascular Disease
PROC: 027036Z Dilation of Coronary Artery, One Artery with Three Drug-eluting Intraluminal Devices, Percutaneous Approach (ICD-10-PCS; principal; 2016-07-25)
PROC: 4A023N7 Measurement of Cardiac Sampling and Pressure, Left Heart, Percutaneous Approach (ICD-10-PCS; 2016-07-25)
PROC: B2051ZZ Plain Radiography of Left Heart using Low Osmolar Contrast (ICD-10-PCS; 2016-07-25)
PROC: B2011ZZ Plain Radiography of Multiple Coronary Arteries using Low Osmolar Contrast (ICD-10-PCS; 2016-07-25)
PROC: 3E033PZ Introduction of Platelet Inhibitor into Peripheral Vein, Percutaneous Approach (ICD-10-PCS; 2016-07-25)
DX: I21.19 ST elevation (STEMI) myocardial infarction involving other coronary artery of inferior wall (principal); I25.10 Atherosclerotic heart disease of native coronary artery without angina pectoris; I25.82 Chronic total occlusion of coronary artery; E11.65 Type 2 diabetes mellitus with hyperglycemia; I48.91 Unspecified atrial fibrillation; I10 Essential (primary) hypertension; I25.5 Ischemic cardiomyopathy; E78.5 Hyperlipidemia, unspecified; F17.210 Nicotine dependence, cigarettes, uncomplicated; Z79.84 Long term (current) use of oral hypoglycemic drugs; Z79.82 Long term (current) use of aspirin